=== PATIENT | female | born 1980 | race African-American/Black ===

== ENCOUNTER → 2023-12-13 | Outpatient (CLI) | payer BC ==
--- NOTE | 2023-12-13 09:55 | MR ---
EXAMINATION TYPE: MR pelvis wo/w con DATE OF EXAM: 12/13/2023 COMPARISON: None available CLINICAL INDICATION:Female, 43 years old with history of N93.9 abnormal uterine bleeding; [facility], TECHNIQUE: Triplane multisequence imaging was performed of the pelvis. Then the patient was given c ontrast/gadolinium, 7 cc of Gadavist and multiple post contrast sequences where obtained in three marilyn emmett. FINDINGS: Reproductive: Vagina: Unremarkable. Uterus: The uterus is retroverted in position. Uterus measures 5.0 x 6.3 x 9.3 cm (craniocaudal by AP by transverse dimension). The endometrium and junctional zone are within normal limits. Endometrium measures up to 4 mm in thickness. Multiple intramural and subserosal T2 hypointense heterogenous [place] leiomyomas identified involving the uterine fundus and body. Grossly 15. Largest measures up to 4.0 cm. No definitive submucosal fibroid identified. Ovaries: Follicular changes are noted to the ovaries. Right ovarian thin-walled T2 hyperintense 6.4 x 4.0 x 5.4 cm cyst identified. Demonstrates smooth enhancing wall. No mural nodularity identified. An terior adjacent 2.1 cm cyst without internal enhancement or mural nodularity. No definable wall. Cons istent with a simple cyst. Bladder: Under distended, limiting evaluation.. Bowel: Unremarkable as visualized. Peritoneum: A small amount of free fluid in the pelvis. No evidence of adenopathy. Vasculature: Unremarkable. Abdominal wall/soft tissues: Unremarkable. Musculoskeletal: Bone marrow signal is within normal signal intensity. Levocurvature of the thoracolu mbar spine. IMPRESSION: 1. Multiple uterine intramural and subserosal leiomyomas. 2. Right ovarian 6.4 cm cyst - [facility] MRI 2. Follow-up pelvic ultrasound in 1 year is recommended. 3. Right ovarian 2.1 cm simple cyst - [facility] MRI 1. 4. Normal-appearing endometrium. [facility], , 12/13/2023 9:52 AM
== END | disposition home or self-care (01) ==
LOC: RADMRIMAIN 06:15
PROVIDERS: ATTEND Obstetrics & Gynecology
DX: D25.1 Intramural leiomyoma of uterus (principal); D25.2 Subserosal leiomyoma of uterus; N83.291 Other ovarian cyst, right side
CPT/HCPCS: 72197